=== PATIENT | female | born 1995 | race Caucasian/White ===

== ENCOUNTER 2017-11-07 00:07 | Emergency (ER) | payer SELFPAY ==
[2017-11-07 02:08] LABS: Basophils % (Auto) 0.4 % (0.0-1.8); Eosinophils # (Auto) 0.2 K/mm3 (0.0-0.4); Eosinophils % (Auto) 3.2 % (0.0-4.3); Hematocrit 37.3 % (30.3-42.9); Hemoglobin 12.6 gm/dl (10.1-14.3); Lymphocytes # (Auto) 2.5 K/mm3 (1.2-5.4); Lymphocytes % (Auto) 39.8 % (13.4-35.0); Mean Corpuscular HGB Conc 34 % (30-34); Mean Corpuscular Hemoglobin 31 pg (28-32); Mean Corpuscular Volume 91 fl (79-97); Monocytes # (Auto) 0.7 K/mm3 (0.0-0.8); Monocytes % (Auto) 10.8 % (0.0-7.3); Platelet Count 225 K/mm3 (140-440); Red Blood Count 4.09 M/mm3 (3.65-5.03); Red Cell Distribution Width 13.7 % (13.2-15.2)
[2017-11-07 02:36] LABS: HCG Qualitative,Urine Negative (Negative)
[2017-11-07 02:41] LABS: Bacteria,Urine 1+ /HPF (Negative); Bilirubin,Urine NEG (Negative); Blood,Urine LG (Negative); Color,Urine Yellow (Yellow); Mucus,Urine FEW /HPF; Protein,Urine <15 mg/dL mg/dL (Negative); Urobilinogen,Urine < 2.0 mg/dL (<2.0)
--- NOTE | 2017-11-07 06:51 | Emergency Department Report ---
ED Female HPI - General Chief complaint: Abdominal Pain Stated complaint: ABD PAIN; VAG BLEEDING Time Seen by Provider: 11/07/17 06:50 Source: patient Mode of arrival: Ambulatory Limitations: No Limitations - History of Present Illness Initial comments: This is a 22-year-old female who is not known to this provider previously, recently started oral contraceptives, and presents to the ER with a complaint of intermittent vaginal bleeding over the past few days. This is associated with lower abdominal cramping. The cramping is intermittent, does not radiate anywhere, does not have exacerbating or relieving factors. Patient reports bleeding less than 2 pads soaked per hour. Denies lightheadedness, dizziness, chest pain, shortness of breath, syncope. Denies irritative, obstructive urinary symptoms. MD Complaint: vaginal bleeding, pelvic pain -: Gradual, days(s) Location: suprapubic Radiation: non-radiating Severity: mild Quality: cramping Consistency: intermittent Improves with: none Worsens with: none Are you Now?: No Associated Symptoms: vaginal bleeding, abdominal pain. denies: vaginal discharge, nausea/vomiting, fever/chills, headaches, loss of appetite, dysuria, hematuria, rash, seizure, shortness of breath, syncope, weakness - Related Data Sexually active: Yes Previous Rx's Medication Instructions Recorded Last Taken Type Loratadine [Claritin] 10 mg PO DAILY #30 tablet 09/05/13 Unknown Rx Sulfamethoxazole/Trimethoprim 1 each PO BID #20 tablet 09/05/13 Unknown Rx [Bactrim Ds] predniSONE [Deltasone] 40 mg PO QDAY #10 tab 09/05/13 Unknown Rx Cyclobenzaprine [Flexeril 10 MG 5 mg PO TID PRN #12 tablet 05/18/15 Unknown Rx TAB] Ibuprofen [Motrin 600 MG tab] 600 mg PO Q8H PRN #60 tablet 05/18/15 Unknown Rx Allergies Allergy/AdvReac Type Severity Reaction Status Date / Time No Known Allergies Allergy Verified 11/07/17 01:02 ED Review of Systems ROS: Stated complaint: ABD PAIN; VAG BLEEDING Other details as noted in HPI Comment: All other systems reviewed and negative ED Past Medical Hx - Past Medical History Previous Medical History?: No - Surgical History Past Surgical History?: Yes Hx Appendectomy: Yes - Social History Smoking Status: Never Smoker Substance Use Type: None - Medications Home Medications: Home Medications Medication Instructions Recorded Confirmed Last Taken Type Loratadine [Claritin] 10 mg PO DAILY #30 tablet 09/05/13 Unknown Rx Sulfamethoxazole/Trimethoprim 1 each PO BID #20 tablet 09/05/13 Unknown Rx [Bactrim Ds] predniSONE [Deltasone] 40 mg PO QDAY #10 tab 09/05/13 Unknown Rx Cyclobenzaprine [Flexeril 10 MG 5 mg PO TID PRN #12 tablet 05/18/15 Unknown Rx TAB] Ibuprofen [Motrin 600 MG tab] 600 mg PO Q8H PRN #60 tablet 05/18/15 Unknown Rx ED Physical Exam - General Limitations: No Limitations General appearance: alert, in no apparent distress - Head Head exam: Present: atraumatic, normocephalic - Eye Eye exam: Present: normal appearance, EOMI. Absent: nystagmus - ENT ENT exam: Present: normal exam, normal orophraynx, mucous membranes moist, normal external ear exam - Neck Neck exam: Present: normal inspection, full ROM. Absent: tenderness, meningismus - Respiratory Respiratory exam: Present: normal lung sounds bilaterally. Absent: respiratory distress - Cardiovascular Cardiovascular Exam: Present: regular rate, normal rhythm, normal heart sounds. Absent: bradycardia, tachycardia, irregular rhythm, systolic murmur, diastolic murmur, rubs, gallop - GI/Abdominal GI/Abdominal exam: Present: soft. Absent: distended, tenderness, guarding, rebound, rigid, pulsatile mass - External exam: Present: normal external exam. Absent: erythema, swelling, lesions, lacerations, ecchymosis, bleeding Speculum exam: Present: normal speculum exam, vaginal bleeding. Absent: erythema, vaginal discharge Bi-manual exam: Present: normal bi-manual exam, other (chaperoned by nurse Shaylee Treviño). Absent: cervical motion tendernes, adnexal tenderness, adnexal mass, uterine enlargement, uterine tenderness - Extremities Exam Extremities exam: Present: normal inspection, full ROM, normal capillary refill , other (2+ pulses noted in the bilateral upper, lower extremities. Compartments soft. No long bony tenderness. The pelvis is stable.). Absent: tenderness, pedal edema, joint swelling, calf tenderness - Back Exam Back exam: Present: normal inspection, full ROM. Absent: tenderness, CVA tenderness (R), paraspinal tenderness, vertebral tenderness - Neurological Exam Neurological exam: Present: alert, oriented X3, CN II-XII intact, normal gait, other (Extraocular movements intact. Tongue midline. No facial droop. Facial sensation intact to light touch in the V1, V2, V3 distribution bilaterally. 5 and 5 strength in 4 extremities.. Sensation is intact to light touch in 4 extremities.). Absent: reflexes normal - Psychiatric Psychiatric exam: Present: anxious - Skin Skin exam: Present: warm, dry, intact, normal color. Absent: rash ED Course Vital Signs 11/07/17 11/07/17 11/07/17 00:15 04:22 04:30 Temperature 98.8 F Pulse Rate 88 88 Respiratory 16 Rate Blood Pressure 115/65 112/61 O2 Sat by Pulse 98 99 99 Oximetry 11/07/17 11/07/17 11/07/17 04:32 04:46 04:59 Temperature Pulse Rate 80 Respiratory 16 Rate Blood Pressure 104/59 O2 Sat by Pulse 100 99 Oximetry ED Medical Decision Making - Lab Data Result diagrams: 11/07/17 01:17 Vital Signs 11/07/17 11/07/17 11/07/17 00:15 04:22 04:30 Temperature 98.8 F Pulse Rate 88 88 Respiratory 16 Rate Blood Pressure 115/65 112/61 O2 Sat by Pulse 98 99 99 Oximetry 11/07/17 11/07/17 11/07/17 04:32 04:46 04:59 Temperature Pulse Rate 80 Respiratory 16 Rate Blood Pressure 104/59 O2 Sat by Pulse 100 99 Oximetry Lab Results 11/07/17 11/07/17 11/07/17 Range/Units 01:17 01:17 01:26 WBC 6.3 (4.5-11.0) K/mm3 RBC 4.09 (3.65-5.03) M/mm3 Hgb 12.6 (10.1-14.3) gm/dl Hct 37.3 (30.3-42.9) % MCV 91 (79-97) fl MCH 31 (28-32) pg MCHC 34 (30-34) % RDW 13.7 (13.2-15.2) % Plt Count 225 (140-440) K/mm3 Lymph % (Auto) 39.8 H (13.4-35.0) % [place] % (Auto) 10.8 H (0.0-7.3) % Eos % (Auto) 3.2 (0.0-4.3) % Baso % (Auto) 0.4 (0.0-1.8) % Lymph # 2.5 (1.2-5.4) K/mm3 [place] # 0.7 (0.0-0.8) K/mm3 Eos # 0.2 (0.0-0.4) K/mm3 Baso # 0.0 (0.0-0.1) K/mm3 Seg Neutrophils % 45.8 (40.0-70.0) % Seg Neutrophils # 2.9 (1.8-7.7) K/mm3 Urine Color Yellow (Yellow) Urine Turbidity Slightly-cloudy (Clear) Urine pH 5.0 (5.0-7.0) Ur Specific [place] 1.009 (1.003-1.030) Urine Protein <15 mg/dl (Negative) mg/dL Urine Glucose (UA) Neg (Negative) mg/dL Urine Ketones Neg (Negative) mg/dL Urine Blood Lg (Negative) Urine Nitrite Neg (Negative) Ur Reducing Substances Not Reportable Urine Bilirubin Neg (Negative) Urine Ictotest Not Reportable Urine Urobilinogen < 2.0 (<2.0) mg/dL Ur Leukocyte Esterase Neg (Negative) Urine WBC (Auto) 8.0 H (0.0-6.0) /HPF Urine RBC (Auto) 31.0 (0.0-6.0) /HPF U Epithel Cells (Auto) 3.0 (0-13.0) /HPF Urine Bacteria (Auto) 1+ (Negative) /HPF Urine Mucus Few /HPF Urine HCG, Qual Negative (Negative) Blood Type B POSITIVE Antibody Screen Negative - Medical Decision Making Differential diagnosis, including but not limited to: Fibroids, dysfunctional uterine bleeding, bleeding related to oral contraceptive Assessment and plan: 22-year-old female with new-onset atypical vaginal bleeding associated with recently initiating oral contraceptives. She is afebrile with reassuring vital signs, is not , does not require packed red blood cell transfusion, does not have any abdominal tenderness and does not have any gynecologic or adnexal tenderness. Patient treated supportively with ibuprofen, printed precautions are reviewed, and she is counseled to follow up with her [facility]PER[facility]. Critical care attestation.: If time is entered above; I have spent that time in minutes in the direct care of this critically ill patient, excluding procedure time. ED Disposition Clinical Impression: Dysmenorrhea Disposition: - TO HOME OR SELFCARE Is pt being admited?: No Does the pt Need Aspirin: No Condition: Stable Instructions: Dysmenorrhea (ED) Additional Instructions: Take ibuprofen [id number], 400 mg, every 6 hours, as needed for pain. Take with food. Follow-up with an VENDING SUPERVISOR doctor within the next 2-3 weeks. Return to the ER right away with new pain, worsened pain, migration of pain, projectile vomiting, change in mental status, confusion, inability to tolerate liquid feeds. Return to the ER right away with bleeding more than 2 pads so for hour, lightheadedness, shortness of breath, loss of consciousness. Referrals: [facility] [Provider Group] - 3-5 Days [facility] [Provider Group] - 3-5 Days [facility] [Provider Group] - 3-5 Days Forms: Work/School Release Form(ED)
[2017-11-07] MEDS ORDERED: MOTRIN PO ONE (06:59)
[2017-11-07 07:33] VITALS: BP 104/69
== END 2017-11-07 07:33 | disposition home or self-care (01) ==
LOC: ED 00:07
DX: N94.6 Dysmenorrhea, unspecified (principal); Z90.89 Acquired absence of other organs
CPT/HCPCS: 36415; 81001; 81025; 85025; 86850; 86900; 86901; 99284

== ENCOUNTER 2018-04-24 13:29 | Emergency (ER) | payer SELFPAY ==
--- NOTE | 2018-04-24 13:54 | Emergency Department Report ---
Chief Complaint: Abdominal Pain Stated Complaint: ABD PAIN Time Seen by Provider: 04/24/18 13:47 - HPI History of Present Illness: This is a 22 y.o. female that presents with lower abdominal cramping since last night. Patient think she is 12 weeks . She is calling [facility] today to make her first appointment. LMP 12/16/2018, A0. She denies vaginal bleeding, back pain, vaginal bleeding, or vaginal discharge. - ROS Review of Systems: Abdomen: lower abdominal cramping - Exam Vital Signs: Vital Signs 04/24/18 13:43 Temperature 98.5 F Pulse Rate 92 H Respiratory 18 Rate Blood Pressure 133/68 O2 Sat by Pulse 98 Oximetry MSE screening note: Focused history and physical exam performed. Due to findings the following was ordered: labs and US Fast track for further evaluation. ED Disposition for MSE Condition: Stable Instructions: Abdominal Pain (ED)
[2018-04-24] MEDS ORDERED: TYLENOL PO ONE (14:56)
--- NOTE | 2018-04-24 15:55 | Emergency Department Report ---
<VIRGIE AL - Last Filed: 04/24/18 15:54> ED HPI - General Chief complaint: Abdominal Pain Stated complaint: ABD PAIN Time Seen by Provider: 04/24/18 13:47 Source: patient Mode of arrival: Ambulatory Limitations: No Limitations - History of Present Illness Initial comments: Patient is a 22-year-old female who is approximately 12 weeks but has not had an ultrasound yet this is presenting with some lower abdominal crampiness. Patient states cramps started to 3 days ago and is not associated with any vaginal bleeding. Patient states that she is having some mild nausea but no vomiting. She denies any dysuria or fevers chills, cold or congestion at this time. - Related Data Previous Rx's Medication Instructions Recorded Last Taken Type Loratadine [Claritin] 10 mg PO DAILY #30 tablet 09/05/13 Unknown Rx Sulfamethoxazole/Trimethoprim 1 each PO BID #20 tablet 09/05/13 Unknown Rx [Bactrim Ds] predniSONE [Deltasone] 40 mg PO QDAY #10 tab 09/05/13 Unknown Rx Cyclobenzaprine [Flexeril 10 MG 5 mg PO TID PRN #12 tablet 05/18/15 Unknown Rx TAB] Ibuprofen [Motrin 600 MG tab] 600 mg PO Q8H PRN #60 tablet 05/18/15 Unknown Rx Allergies Allergy/AdvReac Type Severity Reaction Status Date / Time No Known Allergies Allergy Verified 11/07/17 01:02 ED Review of Systems Comment: All other systems reviewed and negative ED Past Medical Hx - Past Medical History Previous Medical History?: No - Surgical History Hx Appendectomy: Yes - Social History Smoking Status: Never Smoker Substance Use Type: None - Medications Home Medications: Home Medications Medication Instructions Recorded Confirmed Last Taken Type Loratadine [Claritin] 10 mg PO DAILY #30 tablet 09/05/13 Unknown Rx Sulfamethoxazole/Trimethoprim 1 each PO BID #20 tablet 09/05/13 Unknown Rx [Bactrim Ds] predniSONE [Deltasone] 40 mg PO QDAY #10 tab 09/05/13 Unknown Rx Cyclobenzaprine [Flexeril 10 MG 5 mg PO TID PRN #12 tablet 05/18/15 Unknown Rx TAB] Ibuprofen [Motrin 600 MG tab] 600 mg PO Q8H PRN #60 tablet 05/18/15 Unknown Rx ED Physical Exam - General Limitations: No Limitations General appearance: alert, in no apparent distress - Head Head exam: Present: atraumatic, normocephalic - Eye Eye exam: Present: normal appearance - ENT ENT exam: Present: mucous membranes moist - Neck Neck exam: Present: normal inspection - Respiratory Respiratory exam: Present: normal lung sounds bilaterally. Absent: respiratory distress, wheezes, rales, rhonchi - Cardiovascular Cardiovascular Exam: Present: regular rate, normal rhythm, normal heart sounds. Absent: systolic murmur, diastolic murmur, rubs, gallop - GI/Abdominal GI/Abdominal exam: Present: soft, normal bowel sounds. Absent: distended, tenderness, guarding, rebound - Extremities Exam Extremities exam: Present: normal inspection - Back Exam Back exam: Present: normal inspection - Neurological Exam Neurological exam: Present: alert, oriented X3 - Psychiatric Psychiatric exam: Present: normal affect, normal mood - Skin Skin exam: Present: warm, dry, intact, normal color. Absent: rash ED Disposition Clinical Impression: Normal in first trimester Disposition: DC-01 TO HOME OR SELFCARE Condition: Stable Instructions: Abdominal Pain (ED), (ED), Abdominal Pain in (ED) Additional Instructions: Make sure to follow up with the primary care physician as discussed. Tylenol as needed for pain. Increase hydration to 8-10 glasses per day of water/follow up with [employer] [employer] [facility]. If you have any worsening symptoms or develop new symptoms please return to ED immediately. Referrals: [facility] MD MAURY [Primary Care Provider] - 3-5 Days ABBI HERNANDEZ MD [Staff Physician] - 3-5 Days ANA HERNANDEZ MD [Referring] - 3-5 Days Forms: Work/School Release Form(ED) <JAMMIE FERRELL - Last Filed: 04/24/18 20:04> ED Review of Systems ROS: Stated complaint: ABD PAIN Other details as noted in HPI ED Course Vital Signs 04/24/18 04/24/18 04/24/18 13:43 15:33 16:33 Temperature 98.5 F Pulse Rate 92 H Respiratory 18 16 15 Rate Blood Pressure 133/68 O2 Sat by Pulse 98 Oximetry 04/24/18 19:16 Temperature 98.1 F Pulse Rate 82 Respiratory 15 Rate Blood Pressure 115/67 O2 Sat by Pulse 98 Oximetry ED Medical Decision Making - Radiology Data Radiology results: report reviewed Normal intrauterine measuring 11 weeks and 2 days. heart rate 16 4 bpm No abnormal findings. - Medical Decision Making 22-year-old female presents with a normal . I discussed the ultrasound findings with the patient. Ultrasound findings shows no abnormalities. Discussed increase hydration with the patient. 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 I discussed the patient she should follow up with [facility] [employer] [facility]. Given her a light duty note This moment patient is in no acute distress she was also sure she is given. Vital signs are normal Critical care attestation.: If time is entered above; I have spent that time in minutes in the direct care of this critically ill patient, excluding procedure time. ED Disposition Is pt being admited?: No Does the pt Need Aspirin: No Time of Disposition: 19:41
[2018-04-24 16:30] LABS: Bilirubin,Urine NEG (Negative); Blood,Urine NEG (Negative); Color,Urine Straw (Yellow); Mucus,Urine FEW /HPF; Protein,Urine <15 mg/dL mg/dL (Negative); RBC,Urine < 1.0 /HPF (0.0-6.0); Urobilinogen,Urine < 2.0 mg/dL (<2.0)
[2018-04-24 19:21] VITALS: BP 115/67
--- NOTE | 2018-04-24 19:33 | Ultrasound Report ---
PROCEDURE: US OB <= 14 WEEKS FETUS TECHNIQUE: Transvesical pelvic statural sonographic imaging was performed HISTORY: lower abdominal pain, 22-year-old female, 1, para 0, LMP 12/26/2017 COMPARISONS: None FINDINGS: Images demonstrate uterus to measure 15.2 x 9.1 x 10.6 cm. Within the uterus, there is a gestational sac containing a pole and yolk sac. No free fluid. heart rate measures 164 bpm. Anterior placenta without previa. By crown-rump length of 4.5 cm, estimated gestational age is 11 weeks 2 days. Right ovary measures 5.1 x 2.2 x 4.7 cm. Left ovary measures 4.5 x 2.3 x 4.7 cm. IMPRESSION: Single live intrauterine gestation at 11 weeks 2 days. Estimated due date 11/11/2018. No evidence for subchorionic bleed or hemorrhage. . This document is electronically signed by Jania Lopez MD., April 24 2018 07:31:25 PM ET
== END 2018-04-24 19:55 | disposition home or self-care (01) ==
LOC: ED 13:29
DX: O26.891 Other specified pregnancy related conditions, first trimester (principal); R10.9 Unspecified abdominal pain; O46.91 Antepartum hemorrhage, unspecified, first trimester; Z3A.12 12 weeks gestation of pregnancy
CPT/HCPCS: 36415; 76801; 81001; 84702